=== PATIENT | male | born 1965 | race Caucasian/White ===

== ENCOUNTER 2025-04-08 06:03 | Day surgery (SDC) | payer OTHER ==
[~2025-04-08] VITALS: Ht 160 cm; Wt 106.7 kg
[~2025-04-08 06:03] MED LIST: HYDCHL25 PO; LOSARTAN POTAS100 M1 PO
[2025-04-08] MEDS ORDERED: Lactated Ringer's 1,000 ML IV SCH (06:20)
--- NOTE | 2025-04-08 06:44 | NUR ---
Ambulatory in Day SurgeryPre-Op teaching done. Pt verbalizes understanding. History, Chart, Medications and Allergies reviewed before start of procedure.Patient confirms NPO status and agrees with scheduled surgery. Patient states colon prep results clear. Patient States Post-Procedure ride home has been arranged.
[2025-04-08 06:47] VITALS: BP 128/76
[2025-04-08] MEDS ORDERED: propofoL 40 ML IV ONE (07:11)
--- NOTE | 2025-04-08 07:32 | NUR ---
04/08/25 0732 Ever Tejeda History, Chart, Medications and Allergies reviewed before start of procedure.MONITOR INTACT WITH CONTINUOUS PULSE OXIMETRY, CONTINUOUS END TITAL CO2, 3-LEAD EKG AND INTERMITTENT BLOOD PRESSURE.3-LEAD EKG REVIEWED WITH PHYSICIAN PRIOR TO START OF PROCEDURE.O2 VIA POM INTACT THROUGHOUT SEDATION/PROCEDURE.See Anesthesia record.
[2025-04-08 08:10] VITALS: BP 113/62
[2025-04-08 08:25] VITALS: BP 117/65
--- NOTE | 2025-04-08 08:29 | NUR ---
Discharge instructions reviewed with patient. Patient verbalizes understanding. Copy given to patient to take home. Patient States Post-Procedure ride home has been arranged. Discharged via wheelchair to private car for ride home.
== END 2025-04-08 08:26 | disposition home or self-care (01) ==
LOC: ORSCMMR 06:03 → ORD 07:30 → ORSCMMR 07:30
PROVIDERS: Internal Medicine Gastroenterology
PROC: 0DBC8ZX Excision of Ileocecal Valve, Via Natural or Artificial Opening Endoscopic, Diagnostic (ICD-10-PCS; principal; 2025-04-08 07:30)
PROC: 0DBH8ZX Excision of Cecum, Via Natural or Artificial Opening Endoscopic, Diagnostic (ICD-10-PCS; principal; 2025-04-08 07:30)
PROC: 0DBN8ZX Excision of Sigmoid Colon, Via Natural or Artificial Opening Endoscopic, Diagnostic (ICD-10-PCS; principal; 2025-04-08 07:30)
PROC: 0DBM8ZX Excision of Descending Colon, Via Natural or Artificial Opening Endoscopic, Diagnostic (ICD-10-PCS; principal; 2025-04-08 07:30)
PROC: 0DBK8ZX Excision of Ascending Colon, Via Natural or Artificial Opening Endoscopic, Diagnostic (ICD-10-PCS; principal; 2025-04-08 07:30)
DX: R19.5 Other fecal abnormalities (principal); D12.2 Benign neoplasm of ascending colon; D12.4 Benign neoplasm of descending colon; K63.5 Polyp of colon; D12.0 Benign neoplasm of cecum; I10 Essential (primary) hypertension; G47.33 Obstructive sleep apnea (adult) (pediatric); E66.01 Morbid (severe) obesity due to excess calories; Z68.41 Body mass index [BMI] 40.0-44.9, adult; Z79.899 Other long term (current) drug therapy
CPT/HCPCS: 88305; J2704; J7120